=== PATIENT | female | born 1990 | race Caucasian/White ===

== ENCOUNTER 2023-02-27 00:35 | Day surgery (SDC) | payer OTHER, SELFPAY ==
[2023-02-24 14:05] VITALS: BMI 40.7
--- NOTE | 2023-02-24 14:14 | PC.NURSE ---
Report to the Outpatient Waiting Room, entrance under the green pavilion located off [facility], at time 10am on date 02/27/23. Planned Procedure Time: 12pm Time changes happen often and if your time is changed the preop area will call you the afternoon before. - You and your visitor will be asked to self-screen and do not enter if you have any COVID symptoms. - A mask is optional within the hospital at this time. Patients may have clear liquids (water, carbonated beverages, clear teas, apple juice) until 3 hours prior to surgery with a maximum of 20 ounces. stop 7am - No food from midnight until time of surgery Take the following medications with a SIP of water the morning of surgery: NA DO NOT STOP ANY OF YOUR OTHER PRESCRIPTION MEDICATIONS PRIOR TO SURGERY ?EXCEPT THE FOLLOWING Medications to discontinue per physician NA Date to take last dose NA Please no make-up, nail tanzanian, hairspray, perfume, deodorant, or body powder the day of surgery. No jewelry (including any body piercings) or valuables the day of surgery, leave them at home. Please take a shower or bath the night before, or the morning of, surgery with an antibacterial soap. Wear comfortable, loose fitting clothing. Children are encouraged to wear pajamas. - Jewelry must be removed prior to entering the operating room. Rings and piercings that are not removed may be cut off. - The hospital will not accept responsibility for valuables. - Please leave all valuables, including medications, at home the day of surgery. If you are going home after surgery, a licensed rivet driver must drive you home. - NO public transportation without another adult if you receive anesthesia. - We recommend that an adult stay with you for 24 hours following discharge. - We also recommend that you do not drive, make important decision, drink alcoholic beverages, or take any drugs that were not prescribed by your health care provider for at least 24 hours after your discharge time. Follow any additional instructions given to you from your surgeon. If you or anyone in your household have experienced Covid symptoms in the past week, please notify your surgeon or the nurse liaison at the phone number below for possible testing. Telephone instructions given to patient and asked if any additional questions and then verbalized understanding. Patient advised to call surgeon office or pre surgery nurse liaison [phone] if any additional questions.
--- NOTE | 2023-02-26 18:26 | PM.IMHP ---
H&P: HPI History of Present Illness Date/Time: 02/26/23 18:26 Chief Complaint: Recurrent tonsillitis chronic tonsillitis tonsil stones snoring adenoid hypertrophy Narrative: Planned surgical procedure Review of Systems Review of Systems: All systems reviewed & are unremarkable except as noted in HPI and below PMFSH Past Medical History Medical History (Updated 10/22/22 @ 08:49 by Efraín Garcia MD) FH: cholecystectomy Family History Family History (Updated 10/22/22 @ 08:26 by Ariana Mcknight [facility]) Mother Asthma Depression Grandparent Thyroid disorder Grandparent Diabetes mellitus Hypertension Heart disease Social History Social History (Updated 10/22/22 @ 08:24 by Ariana Mcknight [facility]) Smoking status: Never smoker Alcohol intake: never Substance use: never Substance use type: does not use Lack of Transportation: No Lack of Food: Never True Current Housing: I Have Housing Concerned About Future Housing: No Difficulty Paying Gas/Electric Bills: No Difficulty Paying for Meds: No Currently Unemployed: No Education: Master's Degree or Higher Difficulty w/ Childcare or Family Care: No Living arrangements: with family Meds Home Medications and Allergies Allergies Allergy/AdvReac Type Severity Reaction Status Date / Time Sulfa (Sulfonamide Allergy Severe breathing Verified 02/24/23 14:04 Antibiotics) problems Exam Narrative: Large chronic appearing tonsils and adenoids Assessment and Plan Assessment and plan (1) Halitosis: Code(s): R19.6 - Halitosis Status: Acute Assessment and Plan: plan OR tonsillectomy adenoidectomy risks were discussed including postoperative bleeding 3-5%.? Severe pain.? The inherent risks of narcotic use.? Time-out for time off school.? Not been able drive will on narcotics.? Constipation.? Pain damage to any structure above the clavicles by myself damage to any structure during the induction and maintenance of anesthesia including vocal cord paralysis.? Difficulty swallowing change in swallow change in taste which could be permanent.? Patient voiced understanding and agreed. (2) Tonsil stone: Code(s): J35.8 - Other chronic diseases of tonsils and adenoids Status: Acute (3) Recurrent tonsillitis: Code(s): J03.91 - Acute recurrent tonsillitis, unspecified Status: Acute (4) Dysphagia: Code(s): R13.10 - Dysphagia, unspecified Status: Acute (5) Tonsillar hypertrophy: Code(s): J35.1 - Hypertrophy of tonsils Status: Acute (6) Adenoid hypertrophy: Code(s): J35.2 - Hypertrophy of adenoids Status: Acute (7) Snoring: Code(s): R06.83 - Snoring Status: Acute Plan plan OR tonsillectomy adenoidectomy risks were discussed including postoperative bleeding 3-5%.? Severe pain.? The inherent risks of narcotic use.? Time-out for time off school.? Not been able drive will on narcotics.? Constipation.? Pain damage to any structure above the clavicles by myself damage to any structure during the induction and maintenance of anesthesia including vocal cord paralysis.? Difficulty swallowing change in swallow change in taste which could be permanent.? Patient voiced understanding and agreed.
--- NOTE | 2023-02-27 07:14 | WPDHPUPDATE1 ---
History and Physical Update Update Date/Time: 02/27/23 07:14 History and Physical has been reviewed, including an updated exam of the patient. There are NO changes in the patient's condition. Risks, benefits, and alternatives have been discussed and questions answered. Patient agrees to proceed with procedure.
[2023-02-27] MEDS: ACETAMINOPHEN 500 MG TABLET 1000 MG PO (08:23)
[2023-02-27] MEDS: LACTATED RINGERS 1,000 ML 30 ML IV CONT ×2 (08:28→10:55)
--- NOTE | 2023-02-27 08:28 | WPDANESEPPF ---
Anes - Initial Pre Proc Eval Procedure: Operation Date: 02/27/23 09:30 Proposed Procedures p Tonsillectomy And Adenoidectomy - Efraín Garcia MD Date/Time: 02/27/23 08:28 Surgeon: Efraín Garcia MD Pre Op Diagnosis: hypertrophic tonsils and adenoids Patient Data Age: 33 Gender: F Height: 1.7 m Weight: 115.9 kg Allergies Allergy/AdvReac Type Severity Reaction Status Date / Time Sulfa (Sulfonamide Allergy Severe breathing Verified 02/27/23 07:48 Antibiotics) problems Home Medications Medication Instructions Recorded Confirmed Type No Home Medications 02/27/23 02/27/23 History Patient hx anesthesia problems: none Family hx anesthesia problems: none Results Review: All pre-operative results and documents have been reviewed as part of the pre-operative evaluation. FOR[facility]LY [facility], [facility] Past Medical History Medical History (Updated 02/27/23 @ 08:28 by Abdiel Alaniz MD) FH: cholecystectomy Morbid obesity Family History Family History Mother Asthma Depression Grandparent Thyroid disorder Grandparent Diabetes mellitus Hypertension Heart disease Social History Social History Smoking status: Never smoker Alcohol intake: never Substance use: never Substance use type: does not use Lack of Transportation: No Lack of Food: Never True Current Housing: I Have Housing Concerned About Future Housing: No Difficulty Paying Gas/Electric Bills: No Difficulty Paying for Meds: No Currently Unemployed: No Education: Master's Degree or Higher Difficulty w/ Childcare or Family Care: No Living arrangements: with family Anes - Eval Final PreProcedure Day of Procedure 02/27/23 08:28 Patient weight: morbidly obese Heart: regular rate and rhythm Lungs: clear to auscultation Airway: Mallampati scale class II Neurological: alert and oriented Last oral intake: >/= 8 hours ASA classification: III Emergent: no Anesthetic plan: proceed Anesthesia type and monitoring: general ETT and standard monitoring Results Review: All pre-operative results and documents have been reviewed as part of the pre-operative evaluation. Informed Consent: The patient's anesthetic plan and its attendant risks and benefits were discussed with the patient/family/POA. Questions were solicited and answers provided to the satisfaction of the patient/family/POA.
[2023-02-27 08:29] VITALS: BP 156/95; PULSE 93; RESP 20; TEMP 37.1; O2SAT 100
[2023-02-27 10:55] VITALS: BP 130/92; PULSE 74; RESP 19; TEMP 36.2; O2SAT 100
[2023-02-27] MEDS: fentaNYL CITRATE INJ (*CRX) 100 MCG/2 ML VIAL 25 MCG IV PUSH ×4 (11:09→12:10)
[2023-02-27 11:10] VITALS: BP 148/96; PULSE 100; RESP 16; O2SAT 100
--- NOTE | 2023-02-27 11:20 | P.OP_ITS ---
Procedure Note - Detailed Date of Procedure 02/27/23 Pre-op Diagnosis hypertrophic tonsils, recurrent tonsillitis Post-op Diagnosis Same Procedure Performed tonsillectomy Surgeon Efraín Garcia MD Anesthesia General Indications see above Findings severely scarred in endophytic tonsils. Took me about an hour to remove them. Description of Procedure Patient identified consent verified. Patient brought to the operating. Time- out performed. General anesthesia induced endotracheal tube secured. Patient prepped draped position procedure confirmed 2nd time-out performed. McIvor mouth gag inserted reveal really endophytic tonsils they were removed bilaterally in extracapsular plane. Significant bleeding throughout total about 15 cc of blood loss. Normal for me is about 1 cc. They were really scarred and endophytic abnormally shaped in that they were had many crevices and cryptic regions. Nothing sinister other removed in extracapsular plane bilaterally using Bovie electrocautery setting of 8 and 10. Any bleeding was controlled Bovie suction electrocautery as well as bipolar electrocautery setting of 8 10 and 15. After they were out the McIvor mouth gag was lowered for 30 seconds reopened to reveal no further bleeding. Adenoid pad was viewed essentially nonexistent. In-between tonsils McIvor mouth gag was also lowered given the prolonged time for each tonsil. Patient tolerated the procedure well care the patient back to anesthesiology blood loss 15 cc. I performed all dictated portions procedure no complications. Patient taken to PACU. Estimated Blood Loss 15 Drains No Packing No Pathology Yes Complications No immediate complications Condition Stable Disposition PACU [facility] Billing Surgery - Charge Forward: Surgery Billing
[2023-02-27 11:25] VITALS: BP 144/87; PULSE 100; RESP 22; O2SAT 100
[2023-02-27 12:05] VITALS: BP 129/72; PULSE 80; RESP 18
[2023-02-27] MEDS: ONDANSETRON INJ 4 MG/2 ML VIAL IV PUSH (12:17)
[2023-02-27 12:35] VITALS: BP 123/72; PULSE 78; RESP 16
== END 2023-02-27 12:50 | disposition home or self-care (01) ==
PROVIDERS: Visit Provider Otolaryngology
PROC: (CPT 42826; principal; 2023-02-27 09:30)
DX: J03.91 Acute recurrent tonsillitis, unspecified (principal); J35.8 Other chronic diseases of tonsils and adenoids; R19.6 Halitosis; R06.83 Snoring; E66.01 Morbid (severe) obesity due to excess calories; Z68.41 Body mass index [BMI] 40.0-44.9, adult
CPT/HCPCS: 42826; 88302; A9270; J0330; J1100; J1170; J2250; J2405; J2704; J3010; J7030; J7120